=== PATIENT | male | born 1950 | race Caucasian/White ===

== ENCOUNTER 2019-08-03 12:35 | Emergency (ER) | payer OTHER, MEDICAID ==
[~2019-08-03] VITALS: Ht 182.9 cm; Wt 86.2 kg
[2019-08-03 12:40] VITALS: BP_SYST 125
[2019-08-03] MEDS ORDERED: LORazepam 1 MG TABLET PO ONE (13:45)
[2019-08-03 14:24] LABS: BASOPHILS % (AUTO) 0.7 % (0.0-2.0); EOSINOPHILS # (AUTO) 0.3 K/uL (0.0-0.4); HEMATOCRIT 39.8 % (36-54); HEMOGLOBIN 13.8 g/dL (14.0-18.0); LYMPHOCYTES # (AUTO) 1.6 K/uL (1.0-5.5); LYMPHOCYTES % (AUTO) 23.3 % (20.5-51.5); MEAN CORPUSCULAR HEMOGLOBIN 34 pg (27-31); MEAN CORPUSCULAR HGB CONC 35 % (32-36); MEAN CORPUSCULAR VOLUME 98 fL (79.0-98.0); MONOCYTES # (AUTO) 0.8 K/uL (0.0-1.0); PLATELET COUNT (AUTO) 238 K/uL (130-430); RED BLOOD CELL COUNT(AUTO) 4.06 MIL/uL (4.2-6.2); RED CELL DISTRIBUTION WIDTH 13.2 % (9.0-15.0); WHITE BLOOD COUNT (AUTO) 6.7 K/uL (4.8-10.8)
[2019-08-03 14:44] LABS: ANION GAP 4 (5-15); CALCIUM 8.7 mg/dL (8.4-11.0); CHLORIDE 97 mmol/L (98-107); CREATININE 0.73 mg/dL (0.55-1.30); GLUCOSE 100 mg/dL (70-99); POTASSIUM 3.8 mmol/L (3.5-5.1); SODIUM SERUM 131 mmol/L (136-145); UREA NITROGEN, BLOOD 9 mg/dL (8-21)
[2019-08-03 14:49] LABS: ALANINE AMINOTRANSFERASE 25 U/L (12-78); ALBUMIN 3.6 g/dL (3.4-4.8); ASPARTATE AMINOTRANSFERASE 20 U/L (10-37); GFR AFRICAN AMERICAN 138 mL/min (>90); TOTAL BILIRUBIN 0.3 mg/dL (0.0-1.0)
[2019-08-03 14:52] LABS: ACETAMINOPHEN < 1 ug/mL (1-30); ALCOHOL, BLOOD < 3 mg/dL (<10)
[2019-08-03] MEDS ORDERED: LORazepam 2 MG/ML VIAL IM ONE (15:30)
[2019-08-03 16:59] VITALS: BP_SYST 126
== END 2019-08-03 17:03 ==
LOC: SED 12:35
DX: F29 Unspecified psychosis not due to a substance or known physiological condition (principal); L03.116 Cellulitis of left lower limb; Z88.8 Allergy status to other drugs, medicaments and biological substances
CPT/HCPCS: 36415; 80053; 85025; 96372; 99285; G0480; G0481; G0482; J2060

== ENCOUNTER 2019-08-15 13:59 | Outpatient (CLI) | payer OTHER, MEDICAID | END 2019-08-15 18:48 | disposition home or self-care (01) | LOC: SLB 13:59 | PROVIDERS: ATTEND Psychiatry & Neurology Psychiatry | DX: L03.116 Cellulitis of left lower limb (principal); L03.115 Cellulitis of right lower limb; K59.09 Other constipation; F29 Unspecified psychosis not due to a substance or known physiological condition; F17.200 Nicotine dependence, unspecified, uncomplicated; Z88.0 Allergy status to penicillin; Z51.81 Encounter for therapeutic drug level monitoring; Z79.899 Other long term (current) drug therapy | CPT/HCPCS: 36415; 80164-TC ==